=== PATIENT | male | born 1970 | race Caucasian/White ===

== ENCOUNTER 2017-02-14 11:42 | Emergency (ER) | payer OTHER ==
[~2017-02-14] VITALS: Ht 170.2 cm; Wt 67.1 kg
[2017-02-14 13:29] VITALS: BP 203/130
== END 2017-02-14 13:29 | disposition home or self-care (01) ==
LOC: ED 11:42
DX: I10 Essential (primary) hypertension (principal); H66.91 Otitis media, unspecified, right ear; J02.9 Acute pharyngitis, unspecified

== ENCOUNTER 2017-04-24 13:14 | Emergency (ER) | payer MEDICAID ==
[2017-04-24 19:29] VITALS: BP 170/138
== END 2017-04-24 19:29 | disposition home or self-care (01) ==
LOC: ED 13:14
DX: I10 Essential (primary) hypertension (principal); Z79.899 Other long term (current) drug therapy